=== PATIENT | male | born 1975 | race Caucasian/White ===

== ENCOUNTER 2022-04-16 21:40 | Emergency (ER) | payer OTHER, SELFPAY ==
--- NOTE | ~2022-04-16 | CT_ITS ---
EXAMINATION: CT ABDOMEN AND PELVIS WITH CONTRAST CLINICAL INFORMATION: LLQ pain hx of diverticulits COMPARISON: None. TECHNIQUE: Multidetector volumetric imaging was performed from the superior aspect of the liver through the pubic symphysis following administration of 85 mL Omnipaque 300 intravenous contrast. Sagittal and coronal reformatted images were obtained on the technologist workstation.. This CT examination was performed using dose optimization techniques as appropriate, variously including the following: *Automated exposure control *Adjustment of mA and/or kV according to patient size (this includes techniques or standardized protocols for targeted exams where dose is matched to indication/reason for exam; i.e. extremities or head) *Use of iterative reconstruction technique DLP: 670 mGy-cm FINDINGS: LUNG BASES: The visualized lung bases are unremarkable. LIVER, GALLBLADDER, AND BILIARY TREE: The liver is normal in size, shape, and attenuation. No focal hepatic lesion or biliary ductal dilatation is present. The gallbladder is surgically absent. PANCREAS: Unremarkable. SPLEEN: Unremarkable. ADRENAL GLANDS: Unremarkable. KIDNEYS AND URETERS: The kidneys are normal in size, shape, and attenuation. No hydronephrosis, hydroureter, or calculi seen. No perinephric stranding. BLADDER: Unremarkable. GASTROINTESTINAL TRACT: The small and large bowel are unremarkable. The appendix is nonvisualized and presumably surgically absent. ABDOMINAL WALL: No significant hernia is appreciated. LYMPHOVASCULAR STRUCTURES: Mild vascular calcification within the aorta iliac system. No bulky adenopathy. PELVIC VISCERA: Unremarkable. OSSEOUS STRUCTURES: Unremarkable. CT/CT abdomen pelvis w IV con IMPRESSION: No acute intra-abdominal process seen.
[2022-04-16 21:53] VITALS: BP 162/97; PULSE 98; O2SAT 98
--- NOTE | 2022-04-16 22:11 | ED_ITS ---
HPI - Abdominal Pain General Chief Complaint: Abdominal Pain Stated Complaint: Abd pain Time Seen by Provider: 04/16/22 21:55 Source: patient Mode of arrival: ambulatory Limitations: no limitations History of Present Illness HPI narrative: This is a 46-year-old male coming from [facility] history of PR in 2019 with double bypass, partial colon resection in 2005, diverticulitis presenting to the emergency department for evaluation of anorexia, left lower quadrant pain times 2-3 days worsening. Patient tells me this feels like his typical diverticulitis flare. He tells me his last flare was about a month ago, he was placed on antibiotics for 2 weeks, it resolved without difficulty at that time. He tells me his last colonoscopy was years ago. He tells me he has history of complicated diverticulitis status post partial colon resection in 2005. He reports that he is also having associated nausea, vomiting and anorexia has not been able to keep anything down today. Reports that the pain is a 7 to 8/10, does not radiate anywhere else and is localized only in the left lower quadrant, intermittent sharp stabbing pain. Also reports that he has had a few bowel movements that have appeared to have bright blood in them. Denies hematemesis, fevers, chills, diarrhea, headache, vision changes, chest pain, shortness of breath, weakness. Is not currently followed by General surgery or GI. Related Data Previous Rx's Medication Instructions Recorded ondansetron 4 mg disintegrating 4 mg PO Q6H PRN nausea and 04/17/22 tablet vomiting #14 tabs Allergies Allergy/AdvReac Type Severity Reaction Status Date / Time hydromorphone [From Dilaudid] Allergy Unknown Verified 04/16/22 22:00 metoclopramide [From Reglan] Allergy Unknown Verified 04/16/22 22:00 morphine Allergy Unknown Verified 04/16/22 22:00 prochlorperazine Allergy Unknown Verified 04/16/22 22:00 [From Compazine] Review of Systems Review of Systems Constitutional : No Weight loss, No Fever, No Chills, No Fatigue, No Malaise ENT/Mouth : No sore throat, No Rhinorrhea Eyes: No Eye Pain, No Swelling, No Redness Cardiovascular : No Chest Pain, No SOB, No Dyspnea on Exertion, No Orthopnea, No Edema, No Palpitations Respiratory : No Cough, No Sputum, No Wheezing Gastrointestinal : + Nausea, + Vomiting, No Diarrhea, No Constipation, + abdominal Pain, No Hematochezia, No Melena Genitourinary : No Dysuria, No Urinary Frequency, No Hematuria, + rectal ble eding Musculoskeletal : No joint pain, No Myalgias, No Joint Swelling Skin : No Skin Lesions, No rash Neuro : No Weakness, No Numbness, No Dizziness, No Headache Psych : No Anxiety/Panic, No Depression All other systems reviewed and are negative Yes all other systems are reviewed and are negative [facility] Past Medical History Attestation statement: The following information was validated with the patient. Source: old records reviewed and nursing notes reviewed Social History Social History Advance Directives: No Advance Directives Information Provided: No Physical Exam ED Vital Signs: Vital Signs - 24 hr 04/16/22 22:17 04/17/22 00:13 Temperature 98.1 F Pulse Rate 85 96 Respiratory Rate 18 19 Blood Pressure 154/101 H 154/97 H Pulse Oximetry 97 96 Oxygen Delivery Method Room Air Room Air BMI result Body Mass Index 35.0 Vital signs stable Appearance: Alert.? Oriented X3.? No acute distress.? Head: Normocephalic, atraumatic, no step-offs or deformities Eyes: Pupils equal, round and reactive to light.? Neck: Normal inspection.? Neck supple.? CVS: Normal heart rate and rhythm.? Pulses normal.? Respiratory: No respiratory distress.? Breath sounds normal.? Abdomen: Soft and left lower quadrant tenderness to palpation.? Skin: Skin warm and dry.? Normal skin color.? Normal skin turgor.? Extremities: No lower extremity edema.? No calf ttp. 5/5 strength to bilateral upper and lower extremities Neuro: Oriented X 3.? No motor deficit.? No sensory deficit. CN 2-12 intact Rectal exam: Adamantly refusing Course Reevaluation(s) Reevaluation #1: CBC with slight normocytic anemia. Chemistry with no acute electrolyte abnormalities requiring intervention. Lipase within normal limits. Ethanol negative. COVID negative. Urine and CT of the abdomen and pelvis pending.. Time: 23:59 Reevaluation #2: Patient feeling slightly better. CT of the abdomen pelvis with no acute intra- abdominal process seen. Patient reports improvement symptoms. No need for antibiotics. Passed p.o. challenge. Patient will be discharged back to [facility] with GI follow-up. Educated patient on diagnosis and treatment plan, answered all question, patient verbalizes understanding. At this time patient will be discharged home, advised to return with new or worsening symptoms. Educated on worrisome signs and symptoms and when to return. At this time I feel comfortable discharge home. Time: 00:57 Medical Decision Making Medical Decision Making [facility] Narrative: 2210 46-year-old male history of complicated diverticulitis presents with left lower quadrant pain, nausea, vomiting times 2-3 days worsening. Unable to tolerate p.o.. Last flare was about a month ago. Physical exam with left lower quadrant tenderness to palpation. Patient adamantly refusing rectal exam. History and physical exam concerning for possible diverticulitis versus diverticulosis. Unlikely torsion, acute abdomen, pancreatitis, appendicitis, cholecystitis. No signs of large or small bowel obstruction on exam. Blood in stool likely secondary to diverticulitis, I do not suspect acute lower GI bleed. Plan labs, imaging, urine. Differential Diagnosis Differential Diagnoses: The differential diagnosis associated with the presentation includes History and physical exam concerning for possible diverticulitis versus diverticulosis. Unlikely torsion, acute abdomen, pancreatitis, appendicitis, cholecystitis. No signs of large or small bowel obstruction on exam. Admission/Observation Consideration of admission/observation: Escalation of care including admission/observation considered Likely Consult Healthcare Provider Management of the patient was discussed with: Hospitalist Lab Data [facility] Lab Attestation statement: I reviewed the patient's lab results. 04/16/22 23:05 04/16/22 23:05 Labs: Lab Results 04/16/22 04/16/22 04/16/22 Range/Units 22:14 23:05 23:46 WBC (4.8-10.8) X10*3/uL RBC (4.60-5.80) X10*6/uL Hgb (14.0-18.0) g/dl Hct (42.0-52.0) % MCV (80.0-98.0) fL MCH (27.0-33.0) pg MCHC (31.0-36.0) g/dl RDW (11.0-16.0) % Plt Count (160-400) X10*3/uL MPV (9.4-12.4) fL Immature Gran % (Auto) (0.0-0.4) % Neut % (Auto) (45-73) % Lymph % (Auto) (20-40) % Kinney % (Auto) (2-11) % Eos % (Auto) (0-4) % Baso % (Auto) (0-2) % Lymph # (Auto) (1.2-4.9) X10*3/uL Kinney # (Auto) (0.1-1.2) X10*3/uL Eos # (Auto) (0.0-0.4) X10*3/uL Baso # (Auto) (0.0-0.2) X10*3/uL Abs Immat Gran (auto) (0.00-0.03) X10*3/uL Absolute Neuts (auto) (2.0-8.3) x10*3/uL Absolute Nucleated RBC (0.0-0.012) X10*3/uL Nucleated RBC % (auto) (0.0-0.2) /100WBC Sodium 141 (135-145) mmol/L Potassium 5.1 (3.3-5.1) mmol/L Chloride 109 H (96-108) mmol/L Carbon Dioxide 22 (22-29) mmol/L Anion Gap 15 (12-20) BUN 17 H (9-16) mg/dL Creatinine 1.05 (0.5-1.4) mg/dL Estim Creat Clear Calc 96.5 Estimated GFR > 60 Random Glucose 93 (60-115) mg/dL Calcium 9.1 (8.4-10.2) mg/dL Magnesium 1.9 (1.6-2.6) mg/dL Total Bilirubin 0.4 (0.0-1.0) mg/dL AST 29 (5-37) U/L ALT 36 (0-40) U/L Alkaline Phosphatase 147 H (39-117) U/L Total Protein 7.4 (6.5-8.0) g/dL Albumin 4.1 (3.5-5.0) g/dL Lipase 37 (8-78) U/L Urine Color Yellow Urine Appearance Clear Urine pH 5.5 (5.0-9.0) Ur Specific [place] 1.020 (1.005-1.025) Urine Protein Negative (Neg-Trace) mg/dL Urine Glucose (UA) Negative (Negative) mg/dL Urine Ketones Negative (Negative) mg/dL Urine Blood Small (1+) H (Negative) Urine Nitrite Negative (Negative) Ur Leukocyte Esterase Negative (Negative) Urine RBC 0-2 (0-2) /HPF Urine WBC 0-5 (0-5) /HPF Ur Squamous Epith Cells 0-2 (0-2) /HPF Urine Bacteria None Seen (None Seen) Hyaline Casts 0-2 (0-2) /LPF Ethyl Alcohol < 10 mg/dL COVID-19 (FABIANO) Negative (Negative) COVID-19 Clin Com See Note 04/16/22 Range/Units 23:51 WBC 10.5 (4.8-10.8) X10*3/uL RBC 4.30 L (4.60-5.80) X10*6/uL Hgb 13.9 L (14.0-18.0) g/dl Hct 40.9 L (42.0-52.0) % MCV 95.1 (80.0-98.0) fL MCH 32.3 (27.0-33.0) pg MCHC 34.0 (31.0-36.0) g/dl RDW 12.6 (11.0-16.0) % Plt Count 242 (160-400) X10*3/uL MPV 10.0 (9.4-12.4) fL Immature Gran % (Auto) 0.6 H (0.0-0.4) % Neut % (Auto) 67.1 (45-73) % Lymph % (Auto) 25.3 (20-40) % Kinney % (Auto) 5.5 (2-11) % Eos % (Auto) 1.1 (0-4) % Baso % (Auto) 0.4 (0-2) % Lymph # (Auto) 2.7 (1.2-4.9) X10*3/uL Kinney # (Auto) 0.6 (0.1-1.2) X10*3/uL Eos # (Auto) 0.1 (0.0-0.4) X10*3/uL Baso # (Auto) 0.0 (0.0-0.2) X10*3/uL Abs Immat Gran (auto) 0.06 H (0.00-0.03) X10*3/uL Absolute Neuts (auto) 7.0 (2.0-8.3) x10*3/uL Absolute Nucleated RBC 0.000 (0.0-0.012) X10*3/uL Nucleated RBC % (auto) 0.0 (0.0-0.2) /100WBC Sodium (135-145) mmol/L Potassium (3.3-5.1) mmol/L Chloride (96-108) mmol/L Carbon Dioxide (22-29) mmol/L Anion Gap (12-20) BUN (9-16) mg/dL Creatinine (0.5-1.4) mg/dL Estim Creat Clear Calc Estimated GFR Random Glucose (60-115) mg/dL Calcium (8.4-10.2) mg/dL Magnesium (1.6-2.6) mg/dL Total Bilirubin (0.0-1.0) mg/dL AST (5-37) U/L ALT (0-40) U/L Alkaline Phosphatase (39-117) U/L Total Protein (6.5-8.0) g/dL Albumin (3.5-5.0) g/dL Lipase (8-78) U/L Urine Color Urine Appearance Urine pH (5.0-9.0) Ur Specific Flint (1.005-1.025) Urine Protein (Neg-Trace) mg/dL Urine Glucose (UA) (Negative) mg/dL Urine Ketones (Negative) mg/dL Urine Blood (Negative) Urine Nitrite (Negative) Ur Leukocyte Esterase (Negative) Urine RBC (0-2) /HPF Urine WBC (0-5) /HPF Ur Squamous Epith Cells (0-2) /HPF Urine Bacteria (None Seen) Hyaline Casts (0-2) /LPF Ethyl Alcohol mg/dL COVID-19 (FABIANO) (Negative) COVID-19 Clin Com Radiology Impression Discussion of test interpretation with radiology: I have reviewed the radiologist's reading. Core Measures AMI core measures followed: Yes Measure exclusions: not indicated Medications Administered Discontinued Medications Generic Name Dose Route Start Last Admin Trade Name Freq PRN Reason Stop Dose Admin Iohexol 85 ml 04/17/22 00:27 04/17/22 00:29 Iohexol 350 Mg/Ml 100 Ml Infus..Btl IV 04/17/22 00:28 85 ml ONCE ONE Administration Ketorolac Tromethamine 30 mg 04/16/22 22:10 04/17/22 00:29 Ketorolac Tromethamine 15 Mg/Ml Vial IVPUSH 04/16/22 22:11 30 mg ONCE ONE Administration Ondansetron HCl 4 mg 04/16/22 22:10 04/17/22 00:29 Ondansetron Hcl 4 Mg/2 Ml Vial IVPUSH 04/16/22 22:11 4 mg ONCE ONE Administration Critical Care Time Critical Care Time Critical Care Time: No Discharge Plan Discharge Clinical Impression: Abdominal pain, LLQ, Nausea & vomiting, Blood in stool Patient Disposition: Xfer Other Transfer Details: Transfer back to [facility] on [address] Additional Instructions: Take your medications as prescribed. If you were prescribed antibiotics today, it is important that you take your medication to their entirety, do not skip any doses, do not finish them early. Follow-up with your primary care provider this week. Return to the emergency department with new or worsening symptoms. Such as fevers, chills, chest pain, shortness of breath, nausea, vomiting, dizziness, headache, vision changes, lethargy In case of emergency call 911 You will likely require colonoscopy, please follow up GI. Return with worsening pain, changes in quality or quantity of pain, or worsening rectal bleeding. You can take ibuprofen every 6 hours, Tylenol every 4 as needed for pain or discomfort. Do not exceed maximum daily dose is listed on packaging. Zofran/ondansetron has been sent to the pharmacy, take this as prescribed not take more than the prescribed doses as it can lead to cardiac arrhythmias. ?CT/CT abdomen pelvis w IV con IMPRESSION: No acute intra-abdominal process seen. ? Prescriptions: New ondansetron 4 mg tablet,disintegrating 4 mg PO Q6H PRN (Reason: nausea and vomiting) Qty: 14 0RF Referrals: [facility] [Provider Group] - 1 week Physician,Unknown J [Primary Care Provider] - 2 days
[2022-04-16 22:17] VITALS: BP 154/101; PULSE 85; RESP 18; O2SAT 97; BMI 35.0
--- NOTE | 2022-04-16 22:31 | PC.NURSE ---
Pt A&Ox3. Pt being seen at the [facility] for depression. Pt denies SI/HI at this time. Pt states that he came in due to another possible diverticulitis flare up. Pt states that he has had flare ups for the past month. Pt states that the last time he had a flare up-about a month ago, he received antibiotics, which he finished about 2 weeks ago. Pt states that he took the full cycle of antibiotics. Pt complains of left lower quadrant pain, rated 7/10 resting and gets worse when coughing or sneezing. Pt states that he had bright red blood in his stool today and he also vomited a few times. Pt says that he had a colon resection 10yrs ago. Pt states that the last time he had a colonoscopy, he had a very bad reaction to the anesthesia where I stopped breathing so he has not had another since. Pt also states that he had an ND in 2019 and had a double bypass. Pt also complaining of nausea at this time.
[2022-04-16 22:37] LABS: COVID-19 Test Negative (Negative); IDNOW Serial# 6674DD1D
[2022-04-16 23:25] LABS: Alanine Aminotransferase 36 U/L (0-40); Albumin Level 4.1 g/dL (3.5-5.0); Alkaline Phosphatase 147 U/L (39-117); Anion Gap 15 (12-20); Aspartate Amino Transferase 29 U/L (5-37); Bilirubin Total 0.4 mg/dL (0.0-1.0); Blood Urea Nitrogen 17 mg/dL (9-16); Calcium 9.1 mg/dL (8.4-10.2); Carbon Dioxide 22 mmol/L (22-29); Chloride 109 mmol/L (96-108); Creatinine Clr Calc Pharmacy 96.5; Estimated Glomerular Filt Rate > 60; Ethanol < 10 mg/dL; Glucose Random 93 mg/dL (60-115); Lipase 37 U/L (8-78); Magnesium 1.9 mg/dL (1.6-2.6); Potassium 5.1 mmol/L (3.3-5.1); Sodium 141 mmol/L (135-145); Total Protein 7.4 g/dL (6.5-8.0)
[2022-04-16 23:56] LABS: Basophils Percent Auto 0.4 % (0-2); Eosinophils Absolute Auto 0.1 X10*3/uL (0.0-0.4); Eosinophils Percent Auto 1.1 % (0-4); Hematocrit 40.9 % (42.0-52.0); Hemoglobin 13.9 g/dl (14.0-18.0); Imm Gran Abs Auto 0.06 X10*3/uL (0.00-0.03); Imm Gran Pct Auto 0.6 % (0.0-0.4); Lymphocytes Absolute Auto 2.7 X10*3/uL (1.2-4.9); Lymphocytes Percent Auto 25.3 % (20-40); Mean Corpuscular Hemoglobin 32.3 pg (27.0-33.0); Mean Corpuscular Volume 95.1 fL (80.0-98.0); Monocytes Absolute Auto 0.6 X10*3/uL (0.1-1.2); Monocytes Percent Auto 5.5 % (2-11); Neutrophils Percent Auto 67.1 % (45-73); Platelet Count 242 X10*3/uL (160-400); Red Cell Distribution Width 12.6 % (11.0-16.0); White Blood Count 10.5 X10*3/uL (4.8-10.8)
[2022-04-16 23:58] LABS: Appearance Urine Clear; Color Urine Yellow; Glucose Urine UA Negative (Negative); Leukocyte Esterase Urine Negative (Negative); Nitrite Urine Negative (Negative); PH 5.5 (5.0-9.0); UMIC TRIGGER UACC YES; Urine Blood Small (1+) (Negative); Urine Ketones Negative (Negative); Urine Protein Negative (Neg-Trace)
[2022-04-17 00:10] LABS: Bacteria Urine None Seen (None Seen); Hyaline Casts Urine 0-2 /LPF (0-2); RBC Urine 0-2 /HPF (0-2); Squamous Epithelial Cell Urine 0-2 /HPF (0-2); WBC Urine 0-5 /HPF (0-5)
[2022-04-17 00:11] LABS: MANUAL DIFF FLAG NO
[2022-04-17 00:13] VITALS: BP 154/97; PULSE 96; RESP 19; TEMP 36.7; O2SAT 96
[2022-04-17] MEDS: Ketorolac Tromethamine 15 MG/ML VIAL 30 MG IVPUSH (00:29)
[2022-04-17] MEDS: iohexoL 350 MG/ML 100 ML INFUS..BTL 85 ML IV (00:29)
[2022-04-17] MEDS: ondansetron HCL 4 MG/2 ML VIAL IVPUSH (00:29)
[2022-04-17] MEDS: 0.9 % Sodium Chloride 1,000 ML 999 ML IV (01:20)
[2022-04-17] MEDS: Dicyclomine HCl 10 MG CAPSULE PO (01:25)
--- NOTE | 2022-04-17 01:27 | PC.NURSE ---
IVF infusing per MAR. Pt requesting Bentyl, provider agreeable. Pt medicated per request. Pt aware of pending discharge. EMS called for return transport to [facility].
--- NOTE | 2022-04-17 02:01 | PC.NURSE ---
Assumed care from Christophe Campuazno at 2300, pt difficult stick, pt medicated per apr, Ct scan completed, pt denies any sob or chest pain. Plan is for pt to be discharge back to [facility]. Will continue to monitor.
--- NOTE | 2022-04-17 02:17 | PC.NURSE ---
Iv removed, Reviewed discharge instruction with pt. pt verbalized understanding, pt tranported by eduard Ogden.
== END 2022-04-17 02:19 | disposition other institution (70) ==
PROVIDERS: Physician Assistant; Emergency Provider Emergency Medicine
DX: R10.32 Left lower quadrant pain (principal); K92.1 Melena; R11.2 Nausea with vomiting, unspecified; D64.9 Anemia, unspecified; Z20.822 Contact with and (suspected) exposure to COVID-19; Z20.828 Contact with and (suspected) exposure to other viral communicable diseases; Z79.899 Other long term (current) drug therapy
CPT/HCPCS: 74177; 80053; 81001; 82077; 83690; 83735; 85025; 87635; 96361; 96374; 96375; 99284; J1885; J2405; Q9967